=== PATIENT | male | born 1990 ===

== ENCOUNTER 2021-04-05 04:51 | Emergency (ER) | payer SELFPAY ==
--- NOTE | 2021-04-05 05:46 | ER ---
Nurse's Notes [facility] Name: Bethel Frey Age: 31 yrs Sex: Male : 1990 Arrival Date: 04/05/2021 Time: 04:57 Bed DIS1 Private MD: Diagnosis: Contact dermatitis Presentation: 04/05 05:38 Chief complaint: Patient states: he has had a rash to his arms and legs lasting approx bb 3 to 4 days which is very itchy he tried benadryl but it knocked him out and he still has the rash. Coronavirus screen: At this time, the client does not indicate any symptoms associated with coronavirus-19. Ebola Screen: No symptoms or risks identified at this time. Initial Sepsis Screen: Does the patient meet any 2 criteria? No. Patient's initial sepsis screen is negative. Does the patient have a suspected source of infection? No. Patient's initial sepsis screen is negative. Risk Assessment: Do you want to hurt yourself or someone else? Patient reports no desire to harm self or others. Onset of symptoms was April 01, 2021. 05:38 Method Of Arrival: Ambulatory 05:38 Acuity: LUPIS 5 bb Triage Assessment: 05:42 General: Appears in no apparent distress. Behavior is calm, cooperative. Pain: Denies bb pain. Neuro: Level of Consciousness is awake, alert, obeys commands, Oriented to person, place, time, situation. Cardiovascular: Capillary refill < 3 seconds Patient's skin is warm and dry. Respiratory: Respiratory effort is even, unlabored, Respiratory pattern is regular. GI: No signs and/or symptoms were reported involving the gastrointestinal system. Derm: Rash noted that is papular, on right arm, left arm, right leg and left leg. Historical: - Allergies: 05:42 No Known Allergies; bb - Home Meds: 05:42 None [Active]; bb - PMHx: 05:42 None; bb - PSHx: 05:42 None; bb - Immunization history:: Adult Immunizations up to date. - Social history:: Smoking status: unknown. Screenin:44 Abuse screen: Denies threats or abuse. Nutritional screening: No deficits noted. bb Tuberculosis screening: No symptoms or risk factors identified. Fall Risk None identified. Assessment: 05:44 Reassessment: No changes from previously documented assessment. see triage assessment. bb 06:00 Reassessment: Patient is alert, oriented x 3, equal unlabored respirations, skin bb warm/dry/pink. pt verbalized understanding of and agrees to plan of care discharge instructions given pt ambulated with steady gait to exit. Vital Signs: 05:38 BP 131 / 73 LA Sitting (auto/lg); Pulse 73; Resp 18; Temp 98.1(O); Pulse Ox 97% on R/A; tt3 Weight 90.72 kg (R); Height 5 ft. 7 in. (170.18 cm) (R); Pain 0/10; 05:38 Body Mass Index 31.32 (90.72 kg, 170.18 cm) tt3 ED Course: 04:57 Patient arrived in ED. bp1 05:36 Rene Canada MD is Attending Physician. pkl 05:42 Triage completed. bb 05:42 Arm band placed on. bb 05:44 Patient has correct armband on for positive identification. bb 05:44 No provider procedures requiring assistance completed. Patient did not have IV access bb during this emergency room visit. 05:52 Corrine Chou, RN is Primary Nurse. bb Administered Medications: 05:52 Drug: SOLU-Medrol (methylPREDNISolone sodium succinate) 125 mg Route: IM; Site: left bb gluteus; 06:00 Follow up: Response: No adverse reaction bb Outcome: 05:46 Discharge ordered by . pkl 06:01 Discharged to home ambulatory. bb 06:01 Condition: stable 06:01 Discharge instructions given to patient, Instructed on discharge instructions, follow up and referral plans. medication usage, Demonstrated understanding of instructions, follow-up care, medications, Prescriptions given X 1. 06:01 Patient left the ED. bb Signatures: Rene Canada MD MD pkl Corrine Chou, RN RN bb Missy Arboleda bp1 Trim, Russel tt3
--- NOTE | 2021-04-05 05:47 | EDPHYS ---
Physician Documentation [facility] Name: Bethel Frey Age: 31 yrs Sex: Male : 1990 Arrival Date: 04/05/2021 Time: 04:57 Bed DIS1 Private MD: ED Physician Rene Canada HPI: 04/05 05:42 This 31 yrs old Male presents to ER via Unassigned with complaints of Rash. pkl 05:42 The rash is located on the body diffusely. The rash can be described as papular. Onset: pkl The symptoms/episode began/occurred 5 day(s) ago. Associated signs and symptoms: Pertinent positives: itching. Historical: - Allergies: 05:42 No Known Allergies; bb - Home Meds: 05:42 None [Active]; bb - PMHx: 05:42 None; bb - PSHx: 05:42 None; bb - Immunization history:: Adult Immunizations up to date. - Social history:: Smoking status: unknown. ROS: 05:42 Eyes: Negative for injury, pain, redness, and discharge, ENT: Negative for injury, pkl pain, and discharge, Neck: Negative for injury, pain, and swelling, Cardiovascular: Negative for chest pain, palpitations, and edema, Respiratory: Negative for shortness of breath, cough, wheezing, and pleuritic chest pain, Abdomen/GI: Negative for abdominal pain, nausea, vomiting, diarrhea, and constipation, Back: Negative for injury and pain, : Negative for injury, bleeding, discharge, and swelling, Neuro: Negative for headache, weakness, numbness, tingling, and seizure. 05:42 Skin: Positive for rash, of the upper and lower extremities. Exam: 05:42 Head/Face: Normocephalic, atraumatic. Eyes: Pupils equal round and reactive to light, pkl extra-ocular motions intact. Lids and lashes normal. Conjunctiva and sclera are non-icteric and not injected. Cornea within normal limits. Periorbital areas with no swelling, redness, or edema. ENT: Nares patent. No nasal discharge, no septal abnormalities noted. Tympanic membranes are normal and external auditory canals are clear. Oropharynx with no redness, swelling, or masses, exudates, or evidence of obstruction, uvula midline. Mucous membranes moist. Neck: Trachea midline, no thyromegaly or masses palpated, and no cervical lymphadenopathy. Supple, full range of motion without nuchal rigidity, or vertebral point tenderness. No Meningismus. Chest/axilla: Normal chest wall appearance and motion. Nontender with no deformity. No lesions are appreciated. Cardiovascular: Regular rate and rhythm with a normal S1 and S2. No gallops, murmurs, or rubs. Normal PMI, no JVD. No pulse deficits. Respiratory: Lungs have equal breath sounds bilaterally, clear to auscultation and percussion. No rales, rhonchi or wheezes noted. No increased work of breathing, no retractions or nasal flaring. Abdomen/GI: Soft, non-tender, with normal bowel sounds. No distension or tympany. No guarding or rebound. No evidence of tenderness throughout. Back: No spinal tenderness. No costovertebral tenderness. Full range of motion. Neuro: Awake and alert, GCS 15, oriented to person, place, time, and situation. Cranial nerves II-XII grossly intact. Motor strength 5/5 in all extremities. Sensory grossly intact. Cerebellar exam normal. Normal gait. 05:42 Skin: rash can be described as papular. Vital Signs: 05:38 BP 131 / 73 LA Sitting (auto/lg); Pulse 73; Resp 18; Temp 98.1(O); Pulse Ox 97% on R/A; tt3 Weight 90.72 kg (R); Height 5 ft. 7 in. (170.18 cm) (R); Pain 0/10; 05:38 Body Mass Index 31.32 (90.72 kg, 170.18 cm) tt3 MDM: 05:37 Patient medically screened. pkl 05:42 Data reviewed: vital signs, nurses notes. pkl Administered Medications: 05:52 Drug: SOLU-Medrol (methylPREDNISolone sodium succinate) 125 mg Route: IM; Site: left bb gluteus; 06:00 Follow up: Response: No adverse reaction bb Disposition Summary: 04/05/21 05:46 Discharge Ordered Location: Home pkl Problem: new pkl Symptoms: are unchanged pkl Condition: Stable pkl Diagnosis - Contact dermatitis pkl Followup: pkl - With: Private Physician - When: 1 week - Reason: Re-evaluation by your physician Discharge Instructions: - Discharge Summary Sheet pkl Forms: - Medication Reconciliation Form pkl - Thank You Letter pkl - Antibiotic Education pkl - Prescription Opioid Use pkl Prescriptions: - Prednisone 20 mg Oral Tablet - take 1 tablet by ORAL route every 12 hours for 5 days; 10 tablet; Refills: 0, pkl Product Selection Permitted Signatures: Rene Canada MD MD pkl Corrine Chou, RN RN bb
[2021-04-05] MEDS ORDERED: METHYLPREDNISOLONE 125 MG INJ ONE (06:08)
[2021-04-05 06:09] VITALS: BP 131/73; TEMP 98.1; O2SAT 97
== END 2021-04-05 06:01 | disposition home or self-care (01) ==
LOC: ER 04:51
DX: L25.9 Unspecified contact dermatitis, unspecified cause (principal)
CPT/HCPCS: 96372; 99283; J2930